=== PATIENT | female | born 1995 | race Caucasian/White ===

== ENCOUNTER 2016-12-05 15:34 | Emergency (ER) | payer SELFPAY ==
[2016-12-05 15:51] VITALS: BP 157/72
--- NOTE | 2016-12-05 16:27 | Diagnostic Imaging Report ---
[facility] [address] [facility].[address] [address] Report Submission Date: Dec 05, 2016 4:26:50 PM CDT Patient Study Name: CONCEPCION DURANT Date: Dec 05, 2016 4:11:57 PM CDT Modality Type: CR Gender: F Description: SHOULDER : 89 Institution: [facility] Physician: ELEANOR CEE - RICKIE Examination: Plain film shoulder History: Discomfort Comparison exams: None provided Findings: 2 views of the shoulder demonstrate normal cortical margins. No evidence for fracture or dislocation. No soft tissue abnormality Impression: No acute osseous process. Electronically signed on Dec 05, 2016 4:26:50 PM CDT by: Jason KING
[2016-12-05] MEDS: KETOROLAC TROMETHAMINE 60 MG/2 ML VIAL IM ONE (16:36)
--- NOTE | 2016-12-26 15:03 | ED Physician Documentation ---
Upper Extremity Injury - HISTORIAN Historian: patient - HPI Stated Complaint: left shoulder pain Chief Complaint: Upper Extremity Problem Additional Information: You will need to get in to see a primary care provider for further evaluation and treatment since this is an ongoing problem for you. Stop taking the over the counter medications for now. Start Diclofenac twice a day with food. Do shoulder exercises. Onset: other Severity: moderate Duration: worse Context: other (no precipitating facotr) Modifying Factors: pain on movement Further Comments: yes (6 month history of of intermittent left shoulder pain, no precipitating factor noted. Nothing seems to bring on the reoccurance, was seen at [facility] and was felt to have a strained muscle, started on cyclobenzaprine 10mg and Naprosyn 500mg. This seemed to help some. # days ago the pain came back to thre posterior shoulder area and to the deltoid area. Has put the arm in a sling which does not help. NSAID OTC has nto helped. No clicking or popping in the shoulder area.) - ROS CONST: no problems - PAST HX Past History: Rt handed, other (boarderline HTN, ganglion cyst removed on the left hand. ) Allergies/Adverse Reactions: Allergies Allergy/AdvReac Type Severity Reaction Status Date / Time No Known Allergies Allergy Verified 12/05/16 15:51 Home Medications: Ambulatory Orders Medication Instructions Recorded Cyclobenzaprine HCl 10 mg PO TID PRN #30 tablet 12/05/16 Diclofenac Sodium [Voltaren] 50 mg PO BID PRN #30 tablet. 12/05/16 - SOCIAL HX Smoking History: less than 1 pack/day (1/2 ppd) Alcohol Use: none Drug Use: none - FAMILY HX Family History: no significant history - VITAL SIGNS Vital Signs: Vital Signs Temp Pulse Resp BP Pulse Ox 98.2 F 95 H 16 157/72 98 12/05/16 15:46 12/05/16 15:46 12/05/16 15:46 12/05/16 15:46 12/05/16 15:46 ED Results Lab/Radiology - Radiology Radiology Impressions: x-ray within normal limits - Orders Orders: ED Orders Category Date Time Status SHOULDER 2 VIEWS OR MORE [RAD] Stat Exams 12/05/16 Completed URINE HCG Routine Lab 12/05/16 16:21 Ordered Ketorolac Tromethamine [Toradol] Med 12/05/16 16:31 Discontinued 60 mg IM NOW ONE Upper Extremity Injury Physic - Physical Exam General Appearance: alert, mild distress Hand: normal inspection, non-tender, no evidence of injury, normal ROM Wrist: normal inspection, non-tender, no evidence of injury, normal ROM Elbow/Forearm: normal inspection, non-tender, no evidence of injury, normal ROM Shoulder: no evidence of injury, limited ROM (in all planes secondary to pain), pain (no bony abnl notd. Pateint c/o pain with flex/ext of elbow, ext/internal rotation, abduction. ), soft tissue tenderness (over anterior and lateral aspect. No crepitus noted. ). No: bone tenderness, deformity, ecchymosis, swelling Neuro/Vascular/Tendon: no vascular compromise, motor nml, sensation nml Resp/CVS: chest non-tender, breath sounds nml, heart sounds nml, no resp. distress, lungs clear, reg. rate & rhythm Discharge Clincal Impression: Shoulder pain, left Prescriptions: Cyclobenzaprine HCl 10 mg PO TID PRN #30 tablet PRN Reason: muscle spasms Diclofenac Sodium [Voltaren] 50 mg PO BID PRN #30 tablet. PRN Reason: Pain Referrals: Primary Doctor,No [Primary Care Provider] - 2 Days Home Medications: Ambulatory Orders Cyclobenzaprine HCl 10 mg PO TID PRN #30 tablet 12/05/16 Diclofenac Sodium [Voltaren] 50 mg PO BID PRN #30 tablet. 12/05/16 Condition: Stable Disposition: 01 HOME, SELF-CARE Decision to Admit: NO Date of Decison to Admit: 12/05/16 Decision Time: 16:45
== END 2016-12-05 16:55 ==
LOC: ED 15:34
DX: M25.512 Pain in left shoulder (principal)
CPT/HCPCS: 73030; 81025; J1885; 96372; 99282; 99283